=== PATIENT | female | born 1935 | race Caucasian/White ===

== ENCOUNTER 2022-11-23 09:26 | Emergency (ER) | payer OTHER, MEDICARE ==
[2022-11-23] MEDS ORDERED: Amoxicillin/Potassium Clav 875 MG TAB ONE (09:41)
[2022-11-23] MEDS ORDERED: Bacitracin 1 PK ONE ×2 (09:41→10:58)
[2022-11-23] MEDS ORDERED: Boostrix 0.5 ML (Tdap) VIAL (>/=7 yrs of age) ONE (09:41)
[2022-11-23] MEDS ORDERED: Lidocaine 1% w/Epinephrine 1:100K 20 ML VIAL ONE (09:41)
[2022-11-23] MEDS ORDERED: Rabies Vaccine Human 2.5 UNITS VIAL ONE (09:44)
[2022-11-23] MEDS ORDERED: Rabies Immune Globulin/PF 300 UNITS/ML VIAL ONE ×2 (09:44→10:03)
[2022-11-23] MEDS ORDERED: Acetaminophen 325 MG TAB ONE (10:25)
== END 2022-11-23 11:20 | disposition home or self-care (01) ==
LOC: MADERS 09:26
DX: S81.851A Open bite, right lower leg, initial encounter (principal); E03.9 Hypothyroidism, unspecified; I10 Essential (primary) hypertension; E11.9 Type 2 diabetes mellitus without complications; W54.0XXA Bitten by dog, initial encounter; Z79.899 Other long term (current) drug therapy; Z23 Encounter for immunization
CPT/HCPCS: 12002; 90375; 90471; 90472; 90675; 90715; 96372

== ENCOUNTER → 2022-11-26 | Day surgery (SDC) | payer MEDICARE ==
[~2022-11-26] MED LIST: Rabies Vaccine Human 2.5 UNITS VIAL ONE
== END ==
LOC: MADER/OP 13:49
PROVIDERS: ATTEND Emergency Medicine
DX: Z23 Encounter for immunization (principal)
CPT/HCPCS: 90675

== ENCOUNTER 2025-02-28 18:03 | Emergency (ER) | payer MEDICARE ==
[2025-02-28] MEDS ORDERED: Nitroglycerin 2% Ointment 1 INCH/1 GM Packet ONE (18:22)
[2025-02-28] MEDS ORDERED: Aspirin Chewable 81 MG TAB ONE (18:22)
[2025-02-28 18:42] LABS: #Basophils 0.1 thou/uL (0.0-0.2); #Eosinophils 0.3 thou/uL (0.0-0.7); #Lymphocytes 1.8 thou/uL (1.20-3.40); #Monocytes 0.7 thou/uL (0.11-0.59); #Neutrophils 6.1 thou/uL (1.40-6.50); %Basophils 1.4 % (0.0-1.0); %Eosinophils 2.8 % (0.0-10.0); %Lymphocytes 19.8 % (21.0-51.0); %Monocytes 7.9 % (0.0-10.0); %Neutrophils 68.2 % (42.0-75.0); Hematocrit 42.7 % (36.0-47.0); Hemoglobin 14.1 g/dL (12.0-16.0); Mean Corpuscular Hemoglobin 31.9 pg (27.0-31.0); Mean Corpuscular Volume 96.8 fl (78.0-98.0); Platelet Count 271 10x3/uL (130-400); Red Blood Cell (RBC) Count 4.41 mill/uL (4.20-5.40); White Blood Cell (WBC) Count 9.0 10x3/uL (4.8-10.8)
[2025-02-28 18:57] LABS: ALT (SGPT) 25 U/L (Less than 34); AST (SGOT) 34 U/L (11-34); Albumin 4.5 g/dL (3.1-4.5); Alkaline Phosphatase 31 U/L (40-110); Anion Gap 19 mmol/L (10-20); BUN (Urea Nitrogen) 24 mg/dL (9.8-20.1); Bilirubin, Total 0.6 mg/dL (0.3-1.2); Calc. Creatinine Clearance 0 mL/min (70-130); Calcium 9.2 mg/dL (7.8-10.44); Carbon Dioxide 22 mmol/L (23-31); Chloride 106 mmol/L (98-107); Globulin 3.1 g/dL (2.4-3.5); Glucose 92 mg/dL (83-110); Lipase 76 U/L (8-78); Potassium 3.7 mmol/L (3.5-5.1); Sodium 143 mmol/L (136-145); Troponin I Less than 0.010 ng/mL (< 0.028)
[2025-02-28 20:51] LABS: Troponin I 0.031 ng/mL (< 0.028)
[2025-02-28] MEDS ORDERED: hydrALAZINE 10 MG TAB ONE (21:53)
[2025-03-01 00:24] LABS: Troponin I 0.010 ng/mL (< 0.028)
[2025-03-01] MEDS ORDERED: Acetaminophen 500 MG TAB ONE ×3 (02:23→17:12)
[2025-03-01] MEDS ORDERED: metFORMIN 500 MG TAB ONE ×2 (09:44→20:42)
[2025-03-01] MEDS ORDERED: hydrALAZINE 10 MG TAB ONE ×3 (09:45→20:42)
[2025-03-01] MEDS ORDERED: Lisinopril 10 MG TAB ONE (09:45)
[2025-03-01 12:00] LABS: Troponin I 0.010 ng/mL (< 0.028)
[2025-03-01] MEDS ORDERED: Pantoprazole 40 MG DR.TAB PO SCH (12:45)
[2025-03-01] MEDS ORDERED: metFORMIN 500 MG TAB PO SCH (20:00)
== END 2025-03-02 09:15 | disposition home or self-care (01) ==
LOC: MADERS 18:03
DX: R07.89 Other chest pain (principal); I10 Essential (primary) hypertension; E11.9 Type 2 diabetes mellitus without complications; E03.9 Hypothyroidism, unspecified; Z79.899 Other long term (current) drug therapy; Z79.84 Long term (current) use of oral hypoglycemic drugs; Z79.890 Hormone replacement therapy
CPT/HCPCS: 36415; 71045; 80053; 83690; 83880; 84484; 85025; 93005; 94760